=== PATIENT | female | born 1990 | race Two or more races ===

== ENCOUNTER 2023-03-21 04:07 | Emergency (ER) | payer OTHER ==
[~2023-03-21] VITALS: Ht 172.7 cm; Wt 106.8 kg
[2023-03-21] MEDS ORDERED: hydrOXYzine 25 MG TAB or CAP PO ONE (04:45)
[2023-03-21] MEDS ORDERED: HYDR50CA PO (06:49)
[2023-03-21 06:55] VITALS: BP 124/79
== END 2023-03-21 06:57 | disposition home or self-care (01) ==
LOC: ER 04:07
DX: F41.8 Other specified anxiety disorders (principal); Z79.899 Other long term (current) drug therapy